=== PATIENT | female | born 1950 | race Caucasian/White ===

== ENCOUNTER 2018-04-06 11:40 | Outpatient (CLI) | payer OTHER ==
[~2018-04-06] VITALS: Ht 154.9 cm; Wt 75.0 kg
--- NOTE | ~2018-04-06 | HEMODYNAMI ---
PATIENT:ISELA RIVERA MEDICAL RECORD: [id number] : 52 LOCATION:[facility] ADMISSION DATE: 04/06/18 Generatedon:04/06/201815:45 Patient name: ISELA RIVERA Patient #: [id number] SSN: : 1950 Date of study: 04/06/2018 Page: Of Hemodynamic Procedure Report Patient Data Patient Demographics Procedure consent was obtained First Name: ISELA Gender: Female Last Name: MIGUEL : 1950 [facility] Initial: JASON Age: 68 year(s) Patient #: [id number] Race: Unknown Additional ID: [id number] Contact details [address]: [address] [place] [address] State: [place] City: [place] Zip code: [address] Admission Admission Data Admission Date: 04/06/2018 Admission Time: 11:40 Procedure Procedure Types Cath Procedure Peripheral Cath Diagnostic Procedure Vertebroplasty Vertebralplasty Thoracic Procedure Description Procedure Date Procedure Date: 04/06/2018 Procedure Start Time: 14:45 Procedure Staff Name Function Saji Malcolm MD Performing Physician Bubba Christianson RT Monitor Dipika Mcclain RT Scrub Benita Parham RN Nurse Katei Oakley RN Nurse Uriel Casarez MD Additional personnel Procedure Data Cath Procedure Fluoroscopy Diagnostic fluoroscopy Total fluoroscopy Time: 8.6 time: 8.6 min min Diagnostic fluoroscopy Total fluoroscopy dose: 409 dose: 409 mGy mGy Procedure Medications Medication Administration Route Dosage Lidocaine 1% added to field 20 Heparin Flush Bag added to field 2 bags (1000units/500ml NS) Refer to Anesthesia Notes for Sedation Medications unlisted medication 900 mg Hemodynamics Rest Heart Rate: 63 (bpm) Snapshots Pre Cath Intra NCS Post Cath Vital Signs Time Heart Resp SPO2 etCO2 NIBP (mmHg) Rhythm Pain Sedation Rate (ipm) (%) (mmHg) Status Level (bpm) 14:24:56 63 10 100 36.7 190/82(133) NSR 0 (11) 10(A) , No pain 14:29:34 62 10 100 11.2 141/66(96) NSR 0 (11) 10(A) , No pain 14:34:00 61 9 99 15.7 127/54(84) NSR 0 (11) 10(A) , No pain 14:38:20 69 9 98 16.5 123/55(78) NSR 0 (11) 10(A) , No pain 14:42:41 58 9 98 15.7 112/49(69) NSR 0 (11) 10(A) , No pain 14:47:01 57 9 98 16.5 111/49(76) NSR 0 (11) 10(A) , No pain 14:52:00 60 10 100 18 Measuring NSR 0 (11) 10(A) , No pain 14:52:08 60 10 100 10.5 125/58(80) NSR 0 (11) 10(A) , No pain 14:57:07 61 9 96 16.5 Measuring NSR 0 (11) 10(A) , No pain 14:57:26 60 10 96 20.2 127/49(94) NSR 0 (11) 10(A) , No pain 15:01:44 59 10 98 12.7 115/59(91) NSR 0 (11) 10(A) , No pain 15:06:00 57 9 98 0 106/54(81) NSR 0 (11) 10(A) , No pain 15:10:59 60 8 94 0 Measuring NSR 0 (11) 10(A) , No pain 15:11:05 60 8 94 0 122/55(80) NSR 0 (11) 10(A) , No pain 15:15:31 60 10 96 21 124/57(82) NSR 0 (11) 10(A) , No pain 15:19:59 63 13 97 17.2 120/61(84) NSR 0 (11) 10(A) , No pain 15:23:59 32.2 No Cuff NSR 0 (11) 10(A) , No pain 15:27:59 40.5 No Cuff NSR 0 (11) 10(A) , No pain 15:31:58 38.2 No Cuff NSR 0 (11) 10(A) , No pain 15:35:58 39 No Cuff NSR 0 (11) 10(A) , No pain 15:39:58 39.7 No Cuff NSR 0 (11) 10(A) , No pain 15:43:57 39 No Cuff NSR 0 (11) 10(A) , No pain Medications Time Medication Route Dose Verified Delivered Reason Notes Effe ctiveness by by 14:53:38 Lidocaine 1% added 20ml Saji Lennon for local to vial Malcolm Malcolm anesthetic field MD [facility]I 14:53:50 Heparin Flush added 2 Saji Lennon used for Bag to bags Malcolm Malcolm procedure (1000units/500ml field MD [facility] NS) 14:54:27 Refer to Saji Lennon Anesthesia Notes Malcolm Malcolm for Sedation MD [facility] Medications 14:55:16 clindamycin ivpb 900 Saji Joy used for mg Malcolm Prasad staff editor MD Procedure Log Time Note 14:11:41 Bubba Christianson RT (R) (CV) sent for patient. Start room use. 14:11:51 Time tracking: Regular hours (M-F 7:00 - 5:00) 14:11:57 Plan of Care:Hemodynamics will remain stable., Cardiac rhythm will remain stable., Comfort level will be maintained., Respiratory function will remain adequate., Patient/ family verbilizes understanding of procedure., Procedure tolerated without complication., Recovers from procedure without complications.. 14:12:38 Patient received from Outpatients to IR Alert and oriented. Tansferred to table in Prone position. 14:12:40 Correct patient and procedure confirmed by team. 14:12:42 Signed procedure consent form obtained from patient. 14:12:44 ECG and BP/O2 sat monitors applied to patient. 14:12:45 - 14:12:48 H&P Date Dictated: 04/06/2018 H&P Addendum completed by physician on day of procedure. (MUST COMPLETE FOR ALL OUTPATIENTS). 14:12:49 Pre-procedure instructions explained to patient. 14:12:50 Pre-op teaching completed and patient verbalized understanding. 14:12:50 - 14:13:08 SEE ANESTHESIA NOTE FOR PRE PROCEDURE TIVA 14:13:15 Use device set IR Diagnostic 14:13:21 Tegaderm 4 x 4 ([id number]) opened to sterile field. 14:13:22 Sterile Angiographic Pack opened to sterile field. 14:13:22 Bag Decanter (2002S) opened to sterile field. 14:13:39 Family in waiting room. 14:13:41 Patient NPO since Midnight. 14:13:55 Physician responded to page. 14:14:06 Thoracic area was prepped with dura-prep and draped in sterile fashion 14:23:24 Vital chart was started 14:29:05 Baseline sample Acquired. 14:44:44 Physician arrived 14:44:45 --------ALL STOP TIME OUT------ 14:44:46 Final Timeout: patient, procedure, and site verified with staff and physician. All members of the team are in agreement. 14:44:50 Thoracic site verified by team. 14:44:59 Sedation plan: TIVA Medication:Propofol 14:45:14 Procedure started. 14:45:15 Full Disclosure recording started 14:45:20 Local anesthetic to Thoracic area with Lidocaine 1% by Saji Malcolm MD.INITIAL ACCESS ONLY 14:53:38 Lidocaine 1% 20ml vial added to field was administered by Saji Malcolm MD; for local anesthetic; 14:53:50 Heparin Flush Bag (1000units/500ml NS) 2 bags added to field was administered by Saji Malcolm MD; used for procedure; 14:54:27 Refer to Anesthesia Notes for Sedation Medications was administered by Saji Malcolm MD; ; 14:55:12 Cam BONE CEMENT WITH NEEDLE AUTOPLEX Kit opened to sterile field. 14:55:13 CAM CANNULA ACCESS 14 G NEEDLE opened to sterile field. 14:55:16 clindamycin 900 mg ivpb was administered by Benita Parham RN; used for procedure; 14:58:43 CAM CANNULA ACCESS 14G NEEDLE opened to sterile field. 15:09:29 Procedure ended.(Physican Out) 15:13:42 Fluoroscopy time 08.60 minutes. 15:13:46 Fluoroscopy dose: 409 mGy 15:13:46 Flurop Dose total: 409 15:13:48 Sharps counted by scrub and verified by R.N. 15:13:50 Insertion/operative site no bleeding no hematoma. 15:13:56 Post-op/insertion site Right Lumbar area dressed using a 4 x 4 and Tegaderm. 15:14:01 Post-op/insertion site Left Lumbar area dressed using a 4 x 4 and Tegaderm. 15:24:10 Procedure and supply charges have been captured, reviewed, submitted an d are correct. 15:24:18 Post Lumbar area:stable 15:44:24 Report given to Med/Surg. 15:44:28 Patient transfered to Med/Surg with Bed. 15:45:03 Vital chart was stopped Device Usage Item Name Manufacture Quantity Catalog Hospital Part Current Minim al Lot# / Number Charge Number Stock Stock Serial# Code Tegaderm 4 x 3M 1 [id number] 4 (1626W) Sterile Cardinal 1 [id number] [id number] 5 Angiographic Health Pack Bag Decanter Microtek 1 2001S [id number] 5 (2001S) [employer] Venetie BONE Venetie 1 [id number] [id number] [id number] 5 [id number] CEMENT WITH NEEDLE AUTOPLEX Kit CAM Cam 2 [id number] 66976 [id number] 5 CANNULA ACCESS 10 G NEEDLE Signature Audit Stamps Stage Time Signature Unsigned Intra-Procedure 04/06/2018 Bubba 3:45:00 PM Meghan RT (R) (CV) Signatures Monitor : Bubba Signature : Meghan RT Date : Time : [facility] [address] [place] [address]
[2018-04-06 13:07] LABS: INR 0.99 (0.85-1.17); PROTIME 12.6 SECONDS (11.6-15.0)
[2018-04-06 13:08] LABS: APTT 31.1 SECONDS (22.8-39.4)
[2018-04-06 13:09] LABS: CALC OSMOLALITY 281 mosm/kg (275-300); CALCIUM 9.2 mg/dL (8.5-10.1); CARBON DIOXIDE 32.4 mmol/L (21.0-32.0); CHLORIDE - SERUM 103 mmol/L (98-107); CREATININE - SERUM 0.8 mg/dL (0.6-1.3); GLUCOSE 85 mg/dL (74-106); POTASSIUM - SERUM 3.8 mmol/L (3.5-5.1); SODIUM 142 mmol/L (136-145); UREA NITROGEN 13 mg/dL (7-18); eGFR NON AFRICAN AMERICAN 76 mL/min (90-120)
[2018-04-06 13:18] LABS: BASOPHILS 0.6 % (0-2); EOSINOPHILS 1.2 % (0-7); HEMATOCRIT 40.7 % (36.0-48.0); HEMOGLOBIN 13.6 g/dL (12-16); IMMATURE GRANULOCYTES 0.2 % (0-5); LYMPHOCYTES 22.2 % (15-50); MCH 29.7 pg (26.0-34.0); MCHC 33.4 g/dL (31.0-37.0); MCV 88.9 fL (80.0-100.0); MEAN PLATELET VOLUME 9.6 fL (7.4-10.4); MONOCYTES 5.4 % (2-11); NEUTROPHILS 70.4 % (40-80); PLATELET COUNT 383 10x3/uL (130-400); RBC 4.58 10x6/uL (4.00-5.40); RDW 13.7 % (11.5-14.5)
[2018-04-06] MEDS ORDERED: LAMICTAL100 MG PO (13:29)
[2018-04-06] MEDS ORDERED: CARDIZEM120 MG PO (13:30)
[2018-04-06] MEDS ORDERED: VITAMIN B-1250 MCG PO (13:30)
[2018-04-06] MEDS ORDERED: TRAZODONE HCL50 MG PO (13:31)
[2018-04-06 13:39] VITALS: BP 131/70; BMI 31.2
[2018-04-06 16:13] VITALS: BP 131/70; Ht 154.9 cm; Wt 75.0 kg
[2018-04-06 21:42] VITALS: BP 100/31
[2018-04-07] VITALS: BP 115/51
[2018-04-07 04:00] VITALS: BP 126/50
[2018-04-07 11:00] VITALS: BP 108/51
[2018-04-07] MEDS ORDERED: ALEVE220 MG PO (13:19)
== END 2018-04-07 16:00 | disposition home or self-care (01) ==
LOC: D.RAD 11:40 → D.MS 15:46 → D.RAD 04-07 16:00
PROVIDERS: Specialist
DX: S22.059A Unspecified fracture of T5-T6 vertebra, initial encounter for closed fracture (principal); Z01.812 Encounter for preprocedural laboratory examination